=== PATIENT | female | born 1950 | race Asian ===

== ENCOUNTER 2019-07-27 19:45 | Emergency (ER) | payer OTHER ==
[2019-07-27 20:03] VITALS: BP 151/95; PULSE 77; TEMP 97.5; BMI 21.1
--- NOTE | 2019-07-27 21:04 | PDOC ---
Documentation entered by Kya Rowe SCRIBE, acting as scribe for Stephane Hare MD. Stephane Hare MD: This documentation has been prepared by the Jae martins Nirvannie, SCRIBE, under my direction and personally reviewed by me in its entirety. I confirm that the documentation accurately reflects all work, treatment, procedures, and medical decision making performed by me. History of Present Illness - General Chief Complaint: Injury Stated Complaint: NOSE INJURY Time Seen by Provider: 07/27/19 19:49 History Source: Patient Exam Limitations: No Limitations - History of Present Illness Initial Comments: 07/27/19 20:25 HPI: The patient is a 69 year old female, with a significant past medical history of hypertension, hyperlipidemia, Parkinsons Disorder, who presents to the emergency department with nose pain. As per patient and daughter at bedside, approximately 20 min prior to their arrival her granddaughter bumped her head and glasses into the patients nose. They note an initial indentation lasting approximately 20 min and headache, prompting their arrival to the ED. While in the ED, patient notes to be at her baseline without a headache and only mild pain to the nose. She denies any loss of consciousness or neck pain. She denies recent nausea, vomit, diarrhea or constipation. She denies recent dysuria, frequency, urgency or hematuria. She denies recent chest pain or shortness of breath. PAST MEDICAL HISTORY: no significant history PAST SURGICAL HISTORY: no significant history FAMILY HISTORY: no pertinent history SOCIAL HISTORY: Pt lives with family and is employed. MEDICATIONS: reviewed ALLERGIES: As per nursing notes ROS: General: No fevers or chills, no weakness, no weight loss HEENT: +Nose pain. No change in vision. No sore throat,. No ear pain CardioVascular: No chest pain or shortness of breath Respiratory:No cough, or wheezing. Gastrointestinal: no nausea, vomiting, diarrhea or constipation, No rectal bleeding Genitourinary: No dysuria, hematuria, or frequency Musculoskeletal: No joint or muscle pain or swelling Neurologic: No headache, vertigo, dizziness or loss of consciousness Psychiatric: nor depression Skin: No rashes or easy bruising Endocrine: no increased thirst or abnormal weight change Allergic: no skin or latex allergy All other systems reviewed and normal Physical Exam: GENERAL: The patient is awake, alert, and fully oriented, in no acute distress. HEAD: +Mild tenderness to the spine of the nose. Some soft tissue tenderness to the bridge. EYES: Pupils equal, round and reactive to light, extraocular movements intact, sclera anicteric, conjunctiva clear. EXTREMITIES: Normal range of motion, no edema. NEUROLOGICAL: Normal speech, normal gait. PSYCH: Normal mood, normal affect. SKIN: Warm, Dry, normal turgor, no rashes or lesions noted. 07/27/19 20:53 Assessment and plan: This is a 69-year-old female who comes in after being accidentally head butted by her 5-year-old grand child. Patient said nose was not bleeding but did have a area of tenderness over the spine of the nose. X-ray was done that does show a small nondisplaced fracture. Patient discharged well follow-up with primary care doctor Past History - Past Medical History Allergies/Adverse Reactions: Allergies Allergy/AdvReac Type Severity Reaction Status Date / Time aspirin Allergy Rash Verified 07/27/19 19:47 Home Medications: Ambulatory Orders Amlodipine Besylate 5 mg PO DAILY 07/27/19 Atorvastatin Ca [Lipitor] 20 mg PO DAILY 07/27/19 Carbamazepine [Carbamazepine ER] 100 mg PO DAILY PRN 07/27/19 Rasagiline Mesylate 1 mg PO DAILY 07/27/19 COPD: No HTN: Yes Hypercholesterolemia: Yes Other medical history: PARKINSON'S DSE - Psycho Social/Smoking Cessation Hx Smoking History: Never smoked Have you smoked in the past 12 months: No Information on smoking cessation initiated: No Hx Alcohol Use: No *Physical Exam - Vital Signs Last Vital Signs Temp Pulse Resp BP Pulse Ox 97.5 F L 77 18 151/95 98 07/27/19 19:45 07/27/19 19:45 07/27/19 19:45 07/27/19 19:45 07/27/19 19:45 ED Treatment Course - RADIOLOGY Radiology Studies Ordered: Category Date Time Status NASAL BONES [RAD] Stat Radiology 07/27/19 19:59 Taken Discharge - Discharge Information Problems reviewed: Yes Clinical Impression/Diagnosis: Nasal fracture Condition: Stable Disposition: HOME - Admission No - Follow up/Referral Referrals: José Miguel Layne MD [Primary Care Provider] - - Patient Discharge Instructions Additional Instructions: Tylenol as needed for pain. Return to the emergency department immediately with ANY new, persistent or worsening symptoms. Continue any medications as previously prescribed by your physician. You should follow up with your primary doctor as soon as possible regarding today's emergency department visit. . Please make sure your doctor reviews the results of your emergency evaluation. Thank you for coming to the Emergency Department today for your care. It was a pleasure to see you today. Please note that your evaluation is INCOMPLETE until you follow-up with your doctor. - Post Discharge Activity
== END 2019-07-27 21:03 | disposition home or self-care (01) ==
LOC: FER 19:45
DX: S02.2XXA Fracture of nasal bones, initial encounter for closed fracture (principal); S06.9X0A Unspecified intracranial injury without loss of consciousness, initial encounter; W22.8XXA Striking against or struck by other objects, initial encounter; Y93.89 Activity, other specified; Y92.89 Other specified places as the place of occurrence of the external cause; Z88.8 Allergy status to other drugs, medicaments and biological substances; G20 Parkinson's disease; I10 Essential (primary) hypertension; E78.00 Pure hypercholesterolemia, unspecified
CPT/HCPCS: 70160-TC-FY; 99283-25